=== PATIENT | female | born 1940 | race Caucasian/White ===

== ENCOUNTER 2018-03-11 15:12 | Observation (INO) ==
[2018-03-11] MEDS ORDERED: Ketorolac 30 MG/ML VIAL IVP PRN (17:52)
--- NOTE | 2018-03-11 18:04 | Internal Med History&Physical ---
Date of Encounter: 03/11/18 Time of Encounter: 18:00 Internal Medicine - H&P: HPI Chief complaint: Left groin pain and gross hematuria History of present illness: Patient is a 77-year-old female with past medical history significant for paroxysmal atrial fibrillation, CVA, hypertension, hyperlipidemia and rheumatoid arthritis who presented to [facility] on 03/11/18 due to left groin pain. Patient reports that proximal 10 a.m. of experiencing left sided pain that radiated from her hip down to her groin. She describes the pain as sharp and constant with a severity of 12 out of 10 with movement making discomfort worse and nothing giving any relief. Patient also reported of a 2 day history of gross hematuria. Patient had a friend bring her to [facility] for further evaluation. At [facility] CT of the abdomen/pelvis without contrast showed mild left hydronephrosis with slight inflammatory changes in the left pelvis; sigmoid diverticulosis was also noted without any evidence of diverticulitis. Patient was without leukocytosis and hemoglobin stable at 14.2. Patient was found to have slightly elevated creatinine at 1.07; urinalysis also is showed microhematuria. Patient was also found to have an INR of 4.04. She was subsequently transferred to [facility] medical floor for further management and evaluation. Past Med Surg Social Fam HX - Past Medical History Medical history: atrial fibrillation, CVA, hyperlipidemia, hypertension, RA Additional medical history: Two strokes 2017 Psychiatric history: no psych history - Past Surgical History Surgical History: non-contributory Additional surgical history: Cataract surgery 2018: Diagnosed with macular degeneration - Social History Smoking Status: Never smoker Smokeless Tobacco Status: No Alcohol use: none Drug use: none - Family History Mother Hx Family Cancer: Yes (Multiple myeloma) Sister Hx Family Cancer: Yes (Metestatic breast cancer) Internal Medicine - H&P: Meds Allergy/AdvReac Type Severity Reaction Status Date / Time No Known Allergies Allergy Verified 07/26/16 18:50 All Systems PM: A 10-system review of systems was performed and is negative for pertinent findings except as documented above in the HPI. - Constitutional Vitals: Temp Pulse Resp BP Pulse Ox 98.4 F 60 15 168/62 97 03/11/18 17:51 03/11/18 17:51 03/11/18 17:51 03/11/18 17:51 03/11/18 17:51 Exam: General appearance: Present: A&O X 3, no acute distress - Head Head exam: Present: normocephalic - Eye Eye exam: Present: normal appearance - ENT ENT exam: Present: mucous membranes moist - Respiratory Respiratory exam: Present: CTAB. Absent: accessory muscle use, rales, rhonchi, wheezes - Cardiovascular Cardiovascular exam: Present: RRR, +S1, +S2. Absent: diastolic murmur, gallop, rubs, systolic murmur - GI/Abdominal GI/Abdominal exam: Present: Left-sided abdominal tenderness to palpation Extremities exam: Absent: pedal edema - Neurological Exam Neurological exam: Present: alert, oriented X3, no focal deficits. Absent: altered - Psychiatric Psychiatric exam: -normal mood Skin exam: -normal color - Assessment and plan (1) Gross hematuria Current Visit: Yes Status: Acute Assessment and plan: Patient reports a 48 hour history of gross hematuria with left groin pain suspect secondary to nephrolithiasis CT imaging of abdomen/pelvis as below Urology consulted and appreciate recommendations (2) Hydronephrosis, left Current Visit: Yes Status: Acute Assessment and plan: At [facility] CT of the abdomen/pelvis without contrast showed mild left hydronephrosis with slight inflammatory changes in the left pelvis; sigmoid diverticulosis was also noted without any evidence of diverticulitis. Pain control and IV fluids as below for KALYANI Urology consulted and appreciate recommendations (3) Supratherapeutic INR Current Visit: Yes Status: Acute Assessment and plan: Patient found to have an INR of 4.04 at [facility] ER Will hold Coumadin due to gross hematuria above and monitor INR (4) Paroxysmal atrial fibrillation Current Visit: Yes Status: Acute Assessment and plan: Rate controlled; will hold Coumadin for anticoagulation however due to gross hematuria above and supratherapeutic INR (5) History of CVA (cerebrovascular accident) Current Visit: Yes Status: Acute Assessment and plan: She reports of having 2 CVAs in the past (6) HTN (hypertension), benign Current Visit: Yes Status: Acute Assessment and plan: Continue home medications (7) HLD (hyperlipidemia) Current Visit: Yes Status: Acute Assessment and plan: Continue home medications Qualifiers: Hyperlipidemia type: unspecified Qualified Code(s): E78.5 - Hyperlipidemia, unspecified (8) DVT prophylaxis Current Visit: Yes Status: Acute Assessment and plan: Holding Coumadin due to supratherapeutic INR as above - Time Spent With Patient Total time spent is greater than 50% in coordination of care (as documented) at patient's floor/unit and/or counseling patient:
[2018-03-11] MEDS ORDERED: Naloxone 0.4 MG/ML INJ IVP PRN (18:26)
[2018-03-11] MEDS: 0.9 % Sodium Chloride 1,000 ML IVC SCH (20:33)
[2018-03-12 05:18] LABS: Eosinophils % 1.2 %; Immature Granulocytes % 0.3 % (0-4); Mean Corpuscular HGB Conc 32.7 g/dL (31.6-35.5); Mean Corpuscular Hemoglobin 30.8 pg (28.0-33.3)
[2018-03-12 05:20] LABS: Basophils % 0.3 %; Eosinophils # 0.1 K/mcL (0.0-0.6); Hematocrit 39.1 % (35.3-44.9); Hemoglobin 12.8 g/dL (11.5-15.4); Immature Platelets 7.9 % (1.1-6.1); Mean Corpuscular Volume 94.2 fL (83.0-100.0); Mean Platelet Volume 12.3 fL (9.4-12.4); Monocytes # 0.8 K/mcL (0.0-1.3); Monocytes % 11.5 %; Neutrophils # 4.6 K/mcL (1.6-8.9); Platelet Count 100 K/mcL (140-400); Red Blood Count 4.15 M/mcL (3.82-4.97); Red Cell Distribution Width 12.5 % (11.5-14.5); Segmented Neutrophils % 70.7 %
[2018-03-12 05:24] LABS: INR 3.2; Prothrombin Time 36.1 Seconds (9.4-12.1)
[2018-03-12 05:29] LABS: BUN/Creatinine Ratio 20 (6-26); Blood Urea Nitrogen 14 mg/dL (8-23); Calcium 8.6 mg/dL (8.6-10.3); Carbon Dioxide 27 mEq/L (23-29); Chloride 105 mEq/L (98-107); Glucose 103 mg/dL (70-105); Osmolality,Calculated 289 (280-300); Potassium 3.8 mEq/L (3.5-5.1); Sodium 139 mEq/L (136-145); eGFR For Non-African Americans > 60 (> 60)
[2018-03-12] MEDS ORDERED: traMADol 50 MG TABLET PO PRN (08:33)
--- NOTE | 2018-03-12 08:36 | Urology - Consult Note ---
Date of Encounter: 03/12/18 Time of Encounter: 08:34 - Assessment and Plan (1) Gross hematuria Current Visit: Yes Status: Acute Assessment and plan: Patient continues to have gross hematuria but denies any difficulty with voiding . Her hematuria is likely coming from her left kidney as per CT scan. We will plan on allowing the patient to continue with IV fluids and by mouth intake today. We will follow-up with the patient tomorrow. If patient fails to have dramatic improvement in her hematuria by tomorrow will need to obtain CT abdomen pelvis hematuria protocol. If patient does have improvement in her hematuria as her INR decreases can delay the CT hematuria protocol until outpatient follow- up. (2) Hydronephrosis, left Current Visit: Yes Status: Acute Assessment and plan: Unsure of etiology of this at this time. Could be related to blood products or even ureteral tumor. We better evaluated with CT hematuria protocol. We will continue to follow along closely. Patient's serum creatinine is normal at this time. No significant pain at this time Urology CN:HPI Consult date: 03/12/18 Reason for consult Urology: Gross Hematuria Requesting physician: Gamaliel Adam History of present illness: Fara is a 77-year-old female who was transferred from an outside facility secondary to presumed hematuria and a CT scan showing some left-sided hydronephrosis. She states that to 3 days ago she started to notice some gross hematuria. She then had a 6 with an episode of severe left-sided lower back/ flank discomfort with some radiation towards her groin. Patient describes this pain is a 10 out of 10 in nature. It has dramatically improved after receiving some pain medication at the outside facility. She currently has no pain on her left side and less she moves suddenly. No nausea or vomiting. Patient denies any smoking history. Patient CT scan was personally reviewed and appears the patient has some blood products in her left kidney especially in the lower pole. No obvious renal mass was located but the CT scan was done without IV contrast. Patient did have some mild to moderate left-sided hydronephrosis without any obvious obstructing stone this is likely secondary to some dilation from passing blood products. Patient is unsure if her hematuria has improved over the past day. Her INR was initially elevated above 5 according to the patient over the past week. It was for at the outside facility and now has decreased to 3.2. Past Med Surg Social Fam HX - Past Medical History Medical history: atrial fibrillation, CVA, hyperlipidemia, hypertension, RA Additional medical history: Two strokes 2017 Psychiatric history: no psych history - Past Surgical History Surgical History: non-contributory Additional surgical history: Cataract surgery 2018: Diagnosed with macular degeneration - Social History Smoking Status: Never smoker Smokeless Tobacco Status: No Alcohol use: none Drug use: none - Family History Mother Hx Family Cancer: Yes (Multiple myeloma) Sister Hx Family Cancer: Yes (Metestatic breast cancer) Medications and Allergies Allergy/AdvReac Type Severity Reaction Status Date / Time No Known Allergies Allergy Verified 07/26/16 18:50 Review of Systems - Constitutional no chills, no fever(s) - EENT Nose, mouth and throat: no dizziness - Cardiovascular no chest pain, no dyspnea - Respiratory no cough, no dyspnea - Gastrointestinal abdominal pain, no nausea, no vomiting - Genitourinary Genitourinary: as per HPI - Musculoskeletal back pain, no muscle weakness, no numbness - Integumentary unusual bruising (Patient states she has some bruising on her left side), no swelling - Neurological no confusion - Psychiatric no anxiety - Hematologic/Lymphatic no lymphadenopathy - Allergic/Immunologic no throat swelling, no wheezing Exam Initial Vital Signs Temp Pulse Resp BP Pulse Ox 98.4 F 60 15 168/62 97 03/11/18 17:51 03/11/18 17:51 03/11/18 17:51 03/11/18 17:51 03/11/18 17:51 General/Neuological: alert and oriented x 3 Eyes: normal pupils, non-icteric Neck: no lymphadenopathy noted, supple to touch Cardiovascular: RRR, no murmurs Respiratory: normal respiratory effort, clear bilaterally ABD: soft, nontender, no masses palpated, good bowel sounds, patient does have some bruising just above her left iliac crest. Patient denies any falling episodes Back: no pain on percussion bilaterally Skin: no rashes noted, couple of random bruising areas on abdomen Musculoskeletal: normal gait, FROMx4 Urology Results - Labs 03/12/18 04:39 03/12/18 04:39 Abnormal lab results Plt Count 100 K/mcL (140-400) L 03/12/18 04:39 Immature Plt Fraction 7.9 % (1.1-6.1) H 03/12/18 04:39 PT 36.1 Seconds (9.4-12.1) H 03/12/18 04:39 Diabetes panel 03/12/18 Range/Units 04:39 Sodium 139 (136-145) mEq/L Potassium 3.8 (3.5-5.1) mEq/L Chloride 105 (98-107) mEq/L Carbon Dioxide 27 (23-29) mEq/L BUN 14 (8-23) mg/dL Creatinine 0.69 (0.60-1.20) mg/dL Glucose 103 (70-105) mg/dL Calcium 8.6 (8.6-10.3) mg/dL Calcium panel 03/12/18 Range/Units 04:39 Calcium 8.6 (8.6-10.3) mg/dL Pituitary panel 03/12/18 Range/Units 04:39 Sodium 139 (136-145) mEq/L Potassium 3.8 (3.5-5.1) mEq/L Chloride 105 (98-107) mEq/L Carbon Dioxide 27 (23-29) mEq/L BUN 14 (8-23) mg/dL Creatinine 0.69 (0.60-1.20) mg/dL Glucose 103 (70-105) mg/dL Calcium 8.6 (8.6-10.3) mg/dL Adrenal panel 03/12/18 Range/Units 04:39 Sodium 139 (136-145) mEq/L Potassium 3.8 (3.5-5.1) mEq/L Chloride 105 (98-107) mEq/L Carbon Dioxide 27 (23-29) mEq/L BUN 14 (8-23) mg/dL Creatinine 0.69 (0.60-1.20) mg/dL Glucose 103 (70-105) mg/dL Calcium 8.6 (8.6-10.3) mg/dL All other labs normal. - Imaging CT scan - abdomen: image reviewed CT scan - pelvis: image reviewed ( image reviewed as per history of present illness)
--- NOTE | 2018-03-12 09:22 | Internal Med Progress Note ---
Hospitalist Progress Note - Encounter Date of Encounter: 03/12/18 Time of Encounter: 11:00 - Subjective Interval History: Patient with no improvement in gross hematuria this morning Patient continues to be hemodynamically stable without anemia evident on labs. Continue to monitor for another 24-48 hours - Exam Vitals: Temp Pulse Resp BP Pulse Ox 98.7 F 62 14 160/74 97 03/12/18 06:57 03/12/18 06:57 03/12/18 06:57 03/12/18 06:57 03/12/18 06:57 Exam: General appearance: Present: A&O X 3, no acute distress - Head Head exam: Present: normocephalic - Eye Eye exam: Present: normal appearance - ENT ENT exam: Present: mucous membranes moist - Respiratory Respiratory exam: Present: CTAB. Absent: accessory muscle use, rales, rhonchi, wheezes - Cardiovascular Cardiovascular exam: Present: RRR, +S1, +S2. Absent: diastolic murmur, gallop, rubs, systolic murmur - GI/Abdominal GI/Abdominal exam: Present: Left-sided abdominal tenderness to palpation Extremities exam: Absent: pedal edema - Neurological Exam Neurological exam: Present: alert, oriented X3, no focal deficits. Absent: altered - Psychiatric Psychiatric exam: -normal mood Skin exam: -normal color - Assessment and Plan (1) Gross hematuria Current Visit: Yes Status: Acute Assessment and Plan: Patient reports a 48 hour history of gross hematuria with left groin pain prior to admission on 03/11/18 Patient with no improvement in gross hematuria this morning Patient continues to be hemodynamically stable without anemia evident on labs. CT imaging of abdomen/pelvis as below Urology consulted with recommendations to monitor for 24 hours Will reevaluate in the a.m. for consideration of CT abdomen/pelvis hematuria protocol if no improvement in symptoms (2) Hydronephrosis, left Current Visit: Yes Status: Acute Assessment and Plan: At [facility] CT of the abdomen/pelvis without contrast showed mild left hydronephrosis with slight inflammatory changes in the left pelvis; sigmoid diverticulosis was also noted without any evidence of diverticulitis. Unclear etiology per urology; continuing generous IV fluids Recommendations for CT hematuria protocol for better evaluation either as inpatient or outpatient depending on above (3) Supratherapeutic INR Current Visit: Yes Status: Acute Assessment and Plan: Patient found to have an INR of 4.04 at [facility] ER on 03/11/18 Her INR has improved this morning to 3.2 Will continue holding Coumadin due to gross hematuria above and monitor INR (4) Paroxysmal atrial fibrillation Current Visit: Yes Status: Acute Assessment and Plan: Rate controlled; will hold Coumadin for anticoagulation however due to gross hematuria above and supratherapeutic INR (5) History of CVA (cerebrovascular accident) Current Visit: Yes Status: Acute Assessment and Plan: She reports of having 2 CVAs in the past (6) HTN (hypertension), benign Current Visit: Yes Status: Acute Assessment and Plan: Continue home medications (7) HLD (hyperlipidemia) Current Visit: Yes Status: Acute Assessment and Plan: Continue home medications (8) KALYANI (acute kidney injury) Current Visit: Yes Status: Resolved Assessment and Plan: Resolved; creatinine of 1.07 on admission and this morning her 0.69 with generous IV fluids IV fluids was decreased this morning Continue to monitor DVT Prophylaxis: Holding Coumadin due to supratherapeutic INR as above - Time Spent with Patient Total time spent is greater than 50% in coordination of care (as documented) at patient's floor/unit and/or counseling patient: Internal Medicine: Result - Labs CBC & Chem 7: 03/12/18 04:39 03/12/18 04:39 Labs: Short CBC 03/12/18 Range/Units 04:39 WBC 6.5 (4.3-11.1) K/mcL Hgb 12.8 (11.5-15.4) g/dL Hct 39.1 (35.3-44.9) % Plt Count 100 L (140-400) K/mcL Neutrophils # 4.6 (1.6-8.9) K/mcL BMP 03/12/18 04:39 Sodium 139 Potassium 3.8 Chloride 105 Carbon Dioxide 27 BUN 14 Creatinine 0.69 Glucose 103 Calcium 8.6 - ABG Interpretation ABG results: PT/INR, D-dimer PT 36.1 Seconds (9.4-12.1) H 03/12/18 04:39 - VTE Reasons for not Prescribing Prophylaxis: Medical contraindication (7) HLD (hyperlipidemia) Qualifiers: Hyperlipidemia type: unspecified Qualified Code(s): E78.5 - Hyperlipidemia, unspecified
[2018-03-12] MEDS: 0.9 % Sodium Chloride 1,000 ML IVC SCH (09:34)
[2018-03-12] MEDS ORDERED: Acetaminophen 325 MG TABLET PO ONE (19:33)
[2018-03-12] MEDS ORDERED: Ondansetron 4 MG/2 ML VIAL IVP PRN (19:35)
--- NOTE | 2018-03-12 23:04 | Event Note ---
Date of Encounter: 03/12/18 Time of Encounter: 19:03 Alerted by patient's nurse GENOVEVA Lowe the patient's heart rate had increased over the past hour and was sustaining at 148 to 155 bpm. Vital signs at the time: Temperature 100.2, SPO2 91% on room air, SPO2 99% on 2 L, BP 149/84. Ultram administered for pain and fever. Patient given her home dose of metoprolol early at approximately 07:45. Tylenol ordered for fever. Zofran for nausea and vomiting. Cardiac telemetry ordered. Heart rate after metoprolol 124 w/BP of 142/94, RR 16, temp 98.8, and SpO2 96%. Nurse instructed to continue monitoring pt very closely and notify me immediately of any adverse changes.
[2018-03-13] MEDS: 0.9 % Sodium Chloride 1,000 ML IVC SCH
--- NOTE | 2018-03-13 07:18 | Urology Progress Note ---
Date of Encounter: 03/13/18 Time of Encounter: 07:16 - Assessment and Plan (1) Gross hematuria Current Visit: Yes Status: Acute Assessment and plan: Appears resolved at this time I will arrange for outpatient follow-up. Zeke collier will need close monitoring and better education regarding her INR. (2) Hydronephrosis, left Current Visit: Yes Status: Acute Assessment and plan: We will order outpatient CT abdomen and pelvis hematuria protocol. Progress Note Narrative: Patient seen this morning. Patient states that her urine cleared yesterday afternoon. She no longer has gross hematuria. Patient did have episode of elevated heart rate into the 150s last night. She is now on telemetry. Denies any significant left-sided flank pain at this time Objective Initial Vital Signs Temp Pulse Resp BP Pulse Ox 98.4 F 60 15 168/62 97 03/11/18 17:51 03/11/18 17:51 03/11/18 17:51 03/11/18 17:51 03/11/18 17:51 - General physical appearance Present: well developed, well nourished - Abdomen Present: soft. Absent: tender - Integumentary Present: no rash, no abnormal pigmentation - Labs 03/12/18 04:39 03/12/18 04:39 - VTE Reasons for not Prescribing Prophylaxis: Medical contraindication
[2018-03-13 08:24] LABS: Basophils % 0.4 %; Eosinophils # 0.1 K/mcL (0.0-0.6); Eosinophils % 1.6 %; Hematocrit 41.8 % (35.3-44.9); Hemoglobin 13.6 g/dL (11.5-15.4); Immature Granulocytes % 0.4 % (0-4); Lymphocytes # 0.9 K/mcL (0.6-4.6); Lymphocytes % 16.6 %; Mean Corpuscular HGB Conc 32.5 g/dL (31.6-35.5); Mean Corpuscular Volume 95.2 fL (83.0-100.0); Mean Platelet Volume 12.5 fL (9.4-12.4); Monocytes # 0.6 K/mcL (0.0-1.3); Monocytes % 10.7 %; Neutrophils # 3.9 K/mcL (1.6-8.9); Platelet Count 101 K/mcL (140-400); Red Blood Count 4.39 M/mcL (3.82-4.97); Red Cell Distribution Width 12.1 % (11.5-14.5); Segmented Neutrophils % 70.3 %
[2018-03-13 08:44] LABS: BUN/Creatinine Ratio 17 (6-26); Blood Urea Nitrogen 11 mg/dL (8-23); Calcium 8.4 mg/dL (8.6-10.3); Carbon Dioxide 28 mEq/L (23-29); Chloride 107 mEq/L (98-107); Glucose 130 mg/dL (70-105); Osmolality,Calculated 291 (280-300); Sodium 140 mEq/L (136-145); eGFR For Non-African Americans > 60 (> 60)
[2018-03-13] MEDS: Aspirin Enteric Coated 81 MG Tablet PO SCH (09:14)
[2018-03-13] MEDS: Folic Acid 1 MG TABLET PO SCH (09:14)
[2018-03-13 12:53] LABS: INR 1.7; Prothrombin Time 19.6 Seconds (9.4-12.1)
[2018-03-13 15:02] LABS: Bilirubin,Urine Negative (Negative); Blood,Urine Large (Negative); Clarity,Urine Clear (Clear); Color,Urine Yellow (Yellow); Glucose,Urine (UA) Normal (Normal); Ketones,Urine Negative (Negative); Leukocyte Esterase,Urine Moderate (Negative); Nitrite,Urine Negative (Negative); Protein,Urine Negative (Neg-Trace); Specific Gravity,Urine 1.009 (1.010-1.025); Urobilinogen,Urine Normal (Normal)
[2018-03-13 15:05] LABS: Bacteria,Urine None Seen per hpf (None-Few); Hyaline Casts,Urine None Seen per lpf (None-Few); RBC,Urine 15-30 per hpf (0-3); Squamous Epithelial Cell,Urine Moderate per lpf (None-Few)
[2018-03-13] MEDS: Piperacillin/Tazobactam 3.375 GM in 0.9 % Sodium Chloride Mini Bag 100 ML IVPB SCH (16:16)
--- NOTE | 2018-03-13 17:47 | Internal Med Progress Note ---
Hospitalist Progress Note - Encounter Date of Encounter: 03/13/18 Time of Encounter: 17:47 - Subjective Interval History: Patient's gross hematuria has resolved however developed tachycardia overnight with fever Cultures ordered today in addition to urinalysis She was started on IV antibiotic - Exam Vitals: Temp Pulse Resp BP Pulse Ox 98.5 F 74 16 122/70 93 03/13/18 14:34 03/13/18 14:34 03/13/18 14:34 03/13/18 14:34 03/13/18 14:34 Exam: Gen.: Nonacute distress, alert and oriented 3 ENT: Mucosal membranes moist Respiratory: Lungs are clear to auscultation bilaterally without any wheezing rhonchi or rales Cardiovascular: Normal S1 and S2 regular rate rhythm no murmurs rubs or gallops Abdomen: Soft, nontender and nondistended with positive bowel sounds Extremities: No lower extremity edema Skin: Normal color - Assessment and Plan (1) Fever Current Visit: Yes Status: Acute Assessment and Plan: Patient with a MAXIMUM TEMPERATURE of 100.2 overnight in addition to tachycardia Cultures obtained and patient started on IV Zosyn (2) Gross hematuria Current Visit: Yes Status: Acute Assessment and Plan: Resolved Urology consulted with recommendations for consideration of CT abdomen/pelvis hematuria protocol as an outpatient (3) Hydronephrosis, left Current Visit: Yes Status: Acute Assessment and Plan: At [facility] ER CT of the abdomen/pelvis without contrast showed mild left hydronephrosis with slight inflammatory changes in the left pelvis; sigmoid diverticulosis was also noted without any evidence of diverticulitis. Unclear etiology per urology; continuing generous IV fluids Recommendations for CT hematuria protocol for better evaluation either as inpatient or outpatient depending on above (4) Supratherapeutic INR Current Visit: Yes Status: Acute Assessment and Plan: Patient found to have an INR of 4.04 at [facility] on 03/11/18 Patient's INR now 1.7 and gross hematuria has resolved Resume Coumadin on 03/14/18 (5) Paroxysmal atrial fibrillation Current Visit: Yes Status: Acute Assessment and Plan: Rate controlled; will resume Coumadin on 03/14/18 as above (6) History of CVA (cerebrovascular accident) Current Visit: Yes Status: Acute Assessment and Plan: She reports of having 2 CVAs in the past (7) HTN (hypertension), benign Current Visit: Yes Status: Acute Assessment and Plan: Continue home medications (8) HLD (hyperlipidemia) Current Visit: Yes Status: Acute Assessment and Plan: Continue home medications (9) KALYANI (acute kidney injury) Current Visit: Yes Status: Resolved Assessment and Plan: Resolved; creatinine of 1.07 on admission and this morning her 0.66 with generous IV fluids IV fluids was decreased this morning Continue to monitor DVT Prophylaxis: Resuming Coumadin on 03/14/18 as above - Time Spent with Patient Total time spent is greater than 50% in coordination of care (as documented) at patient's floor/unit and/or counseling patient: Internal Medicine: Result - Labs CBC & Chem 7: 03/13/18 07:49 03/13/18 07:49 Labs: Short CBC 03/13/18 Range/Units 07:49 WBC 5.6 (4.3-11.1) K/mcL Hgb 13.6 (11.5-15.4) g/dL Hct 41.8 (35.3-44.9) % Plt Count 101 L (140-400) K/mcL Neutrophils # 3.9 (1.6-8.9) K/mcL BMP 03/13/18 07:49 Sodium 140 Potassium 4.0 Chloride 107 Carbon Dioxide 28 BUN 11 Creatinine 0.66 Glucose 130 H Calcium 8.4 L Urine 03/13/18 Range/Units 14:20 Urine Color Yellow (Yellow) Urine Clarity Clear (Clear) Urine pH 6.0 (5.0-8.0) pH Units Ur Specific [place] 1.009 L (1.010-1.025) Urine Protein Negative (Neg-Trace) mg/dL Urine Glucose (UA) Normal (Normal) mg/dL - ABG Interpretation ABG results: PT/INR, D-dimer PT 19.6 Seconds (9.4-12.1) H 03/13/18 12:29 - VTE Reasons for not Prescribing Prophylaxis: Medical contraindication (8) HLD (hyperlipidemia) Qualifiers: Hyperlipidemia type: unspecified Qualified Code(s): E78.5 - Hyperlipidemia, unspecified
[2018-03-14] MEDS: Piperacillin/Tazobactam 3.375 GM in 0.9 % Sodium Chloride Mini Bag 100 ML IVPB SCH ×2 (00:11→08:01)
[2018-03-14] MEDS: Folic Acid 1 MG TABLET PO SCH (08:02)
[2018-03-14] MEDS: Aspirin Enteric Coated 81 MG Tablet PO SCH (08:02)
[2018-03-14 08:49] VITALS: BP 184/79
[2018-03-14 11:47] LABS: Basophils % 0.2 %; Eosinophils # 0.1 K/mcL (0.0-0.6); Eosinophils % 2.6 %; Immature Granulocytes % 0.4 % (0-4); Lymphocytes % 18.8 %; Mean Corpuscular HGB Conc 32.2 g/dL (31.6-35.5); Mean Corpuscular Hemoglobin 30.6 pg (28.0-33.3); Mean Corpuscular Volume 95.1 fL (83.0-100.0); Mean Platelet Volume 12.6 fL (9.4-12.4); Monocytes # 0.5 K/mcL (0.0-1.3); Monocytes % 9.1 %; Neutrophils # 3.5 K/mcL (1.6-8.9); Platelet Count 103 K/mcL (140-400); Red Blood Count 3.89 M/mcL (3.82-4.97); Red Cell Distribution Width 12.2 % (11.5-14.5); Segmented Neutrophils % 68.9 %
[2018-03-14 11:56] LABS: INR 1.4; Prothrombin Time 15.9 Seconds (9.4-12.1)
[2018-03-14 11:57] LABS: Hemoglobin 11.9 g/dL (11.5-15.4)
[2018-03-14 12:10] LABS: BUN/Creatinine Ratio 19 (6-26); Blood Urea Nitrogen 14 mg/dL (8-23); Calcium 8.3 mg/dL (8.6-10.3); Carbon Dioxide 26 mEq/L (23-29); Chloride 105 mEq/L (98-107); Glucose 162 mg/dL (70-105); Osmolality,Calculated 290 (280-300); Potassium 3.8 mEq/L (3.5-5.1); Sodium 138 mEq/L (136-145); eGFR For Non-African Americans > 60 (> 60)
--- NOTE | 2018-03-14 14:48 | Discharge Summary ---
- NOTES TO OUTPATIENT PROVIDER Notes to Outpatient Provider: Follow-up as an outpatient for CT abdomen/pelvis hematuria protocol. Orders not resulted at time of discharge: Pending orders 03/13/18 12:28 Culture,Blood [BC] Routine 03/15/18 04:00 Basic Metabolic Panel AM 0400 Complete Blood Count [HEME] AM 0400 03/16/18 04:00 Complete Blood Count [HEME] AM 0400 Date of Encounter: 03/14/18 Time of Encounter: 11:00 - Discharge Diagnosis (1) Fever Priority: Secondary Status: Acute Qualifiers: Encounter type: initial encounter Qualified Code(s): T88.3XXA - Malignant hyperthermia due to anesthesia, initial encounter (2) Gross hematuria Priority: Primary Status: Acute (3) Hydronephrosis, left Priority: Primary Status: Acute (4) Supratherapeutic INR Priority: Primary Status: Acute (5) Paroxysmal atrial fibrillation Priority: Secondary Status: Acute (6) History of CVA (cerebrovascular accident) Priority: Secondary Status: Acute (7) HTN (hypertension), benign Priority: Secondary Status: Acute (8) HLD (hyperlipidemia) Priority: Secondary Status: Acute Qualifiers: Hyperlipidemia type: unspecified Qualified Code(s): E78.5 - Hyperlipidemia, unspecified (9) KALYANI (acute kidney injury) Priority: Secondary Status: Resolved Hospital course: Patient is a 77-year-old female with past medical history significant for paroxysmal atrial fibrillation, CVA, hypertension, hyperlipidemia and rheumatoid arthritis who presented to [facility] on 03/11/18 due to left groin pain. Patient reports that proximal 10 a.m. of experiencing left sided pain that radiated from her hip down to her groin. She describes the pain as sharp and constant with a severity of 12 out of 10 with movement making discomfort worse and nothing giving any relief. Patient also reported of a 2 day history of gross hematuria. Patient had a friend bring her to [facility] for further evaluation. At [facility] CT of the abdomen/pelvis without contrast showed mild left hydronephrosis with slight inflammatory changes in the left pelvis; sigmoid diverticulosis was also noted without any evidence of diverticulitis. Patient was without leukocytosis and hemoglobin stable at 14.2. Patient was found to have slightly elevated creatinine at 1.07; urinalysis also is showed microhematuria. Patient was also found to have an INR of 4.04. She was subsequently transferred to [facility] medical floor for further management and evaluation. During patients hospital stay her gross hematuria resolved and urology with r ecommendations to follow-up as an outpatient for CT abdomen/pelvis hematuria protocol. Patient also started on antibiotic for UTI and will finish a day course of Cipro - Time Spent with Patient Total time spent providing and/or coordinating discharge services: Less than 30 minutes - Discharge Medications Prescriptions: Ciprofloxacin HCl [Cipro] 500 mg PO BID 4 Days #8 tablet Warfarin [Coumadin] 2.5 mg PO DAILY #30 tablet Home Medications: Aspirin [Lo-Dose Aspirin EC] 81 mg PO DAILY 03/12/18 [History] Atorvastatin Calcium [Lipitor] 20 mg PO HS 03/12/18 [History] Folic Acid 0.4 mg PO DAILY 03/12/18 [History] Levothyroxine Sodium 50 mcg PO DAILY 03/12/18 [History] Lisinopril [Zestril] 10 mg PO DAILY 03/12/18 [History] Metoprolol [Lopressor] 12.5 mg PO BID 03/12/18 [History] Multivit-Min/FA/Lycopen/Lutein [Adults 50 Plus Multivitamin] 1 tab PO DAILY 03/12/18 [History] Omeprazole [PriLOSEC] 40 mg PO Q48H 03/12/18 [History] Ciprofloxacin HCl [Cipro] 500 mg PO BID 4 Days #8 tablet 03/14/18 [Rx] Warfarin [Coumadin] 2.5 mg PO DAILY #30 tablet 03/14/18 [Rx] Allergies/Adverse Reactions: Allergy/AdvReac Type Severity Reaction Status Date / Time No Known Allergies Allergy Verified 03/12/18 17:35 Date of admission: 03/11/18 17:11 Consults: 03/11/18 17:53 Consult to Urology [CONS] Routine Consulting Provider: Urology Yesenia Reason for Consult: Possibly hydronephrosis, Blood in urine Call Completed: Yes - Constitutional Vitals: Temp Pulse Resp BP Pulse Ox 98 F 57 16 184/79 95 03/14/18 08:46 03/14/18 08:46 03/14/18 08:46 03/14/18 08:46 03/14/18 08:46 Exam: Gen.: Nonacute distress, alert and oriented 3 Skin: Normal color - Patient Status Disposition: Home, Self-Care - Discharge Instructions Instructions: Ciprofloxacin (By mouth), Warfarin (By mouth), Vitamin K in Foods (DC), Elevated INR (DC), Venous Thromboembolism (DC), Venous Thromboembolism (GEN) Follow Up With: Jyoti Miller CNP [Advanced Practice Nurse] - 03/18/18 2:00 pm - VTE Reasons for not Prescribing Prophylaxis: Medical contraindication
[2018-03-14] MEDS ORDERED: *HR* Warfarin 2.5 MG TABLET PO SCH (18:00)
== END 2018-03-14 15:58 | disposition home or self-care (01) ==
LOC: 3ANU → SUATTDRO 17:11
PROVIDERS: ADMIT Student in an Organized Health Care Education/Training Program; ATTEND Hospitalist

== ENCOUNTER 2019-12-10 00:44 | Observation (INO) ==
[2019-12-10] MEDS ORDERED: Naloxone 0.4 MG/ML INJ IVP PRN (02:36)
[2019-12-10 03:37] LABS: Basophils % 0.2 %; Eosinophils # 0.1 K/mcL (0.0-0.6); Hematocrit 43.1 % (35.3-44.9); Hemoglobin 14.1 g/dL (11.5-15.4); Immature Granulocytes % 0.3 % (0-4); Lymphocytes # 1.2 K/mcL (0.6-4.6); Lymphocytes % 20.8 %; Mean Corpuscular HGB Conc 32.7 g/dL (31.6-35.5); Mean Corpuscular Hemoglobin 31.7 pg (28.0-33.3); Mean Corpuscular Volume 96.9 fL (83.0-100.0); Monocytes # 0.5 K/mcL (0.0-1.3); Platelet Count 134 K/mcL (140-400); Red Blood Count 4.45 M/mcL (3.82-4.97); Red Cell Distribution Width 13.1 % (11.5-14.5); Segmented Neutrophils % 69.7 %; White Blood Count 5.8 K/mcL (4.3-11.1)
[2019-12-10 03:42] LABS: INR 2.6; Prothrombin Time 29.1 Seconds (9.4-12.1)
[2019-12-10 04:07] LABS: Alanine Aminotransferase 21 Units/L (7-52); Albumin 3.7 g/dL (3.5-5.7); Albumin/Globulin Ratio 1.5 (1.1-2.2); Alkaline Phosphatase 64 Units/L (34-104); Aspartate Amino Transferase 23 Units/L (13-39); BUN/Creatinine Ratio 17 (6-26); Bilirubin,Total 0.7 mg/dL (0.3-1.0); Blood Urea Nitrogen 12 mg/dL (8-23); Calcium 8.6 mg/dL (8.6-10.3); Carbon Dioxide 23 mEq/L (23-29); Chloride 107 mEq/L (98-107); Globulin 2.5 g/dL (2.4-3.5); Glucose 129 mg/dL (70-105); Magnesium 1.9 mg/dL (1.6-2.6); Osmolality,Calculated 289 (280-300); Potassium 3.8 mEq/L (3.5-5.1); Sodium 139 mEq/L (136-145); Total Protein 6.2 g/dL (6.4-8.9); Troponin I < 0.03 ng/mL (< 0.04); eGFR For African Americans > 60 (> 60); eGFR For Non-African Americans > 60 (> 60)
[2019-12-10] MEDS ORDERED: Perflutren Lipid Microsphere 1.3 ML in 0.9 % Sodium Chloride 8.7 ML IVP PRN (06:46)
[2019-12-10] MEDS: Aspirin Enteric Coated 81 MG Tablet PO SCH (07:32)
[2019-12-10] MEDS: lisinopriL 10 MG TABLET PO SCH ×2 (07:33→16:52)
[2019-12-10 07:46] LABS: Thyroid Stimulating Hormone 5.644 mcIU/mL (0.340-5.600)
[2019-12-10] MEDS: Folic Acid 1 MG TABLET PO SCH (09:17)
[2019-12-10] MEDS: Multivit/Ca/Min/Fe/FA 1 TAB TABLET PO SCH (09:17)
[2019-12-10] MEDS ORDERED: Warfarin perPT PO PRN (18:00)
[2019-12-10] MEDS ORDERED: *HR* Warfarin 2.5 MG TABLET PO ONE (18:00)
[2019-12-11 01:14] LABS: INR 2.7; Prothrombin Time 30.5 Seconds (9.4-12.1)
[2019-12-11 06:25] VITALS: BP 139/85
[2019-12-11] MEDS: Folic Acid 1 MG TABLET PO SCH (08:11)
[2019-12-11] MEDS: lisinopriL 10 MG TABLET PO SCH (08:11)
[2019-12-11] MEDS: Multivit/Ca/Min/Fe/FA 1 TAB TABLET PO SCH (08:11)
[2019-12-11] MEDS: Aspirin Enteric Coated 81 MG Tablet PO SCH (08:11)
[2019-12-11] MEDS ORDERED: *HR* Warfarin 2.5 MG TABLET PO ONE (18:00)
== END 2019-12-11 12:42 | disposition home or self-care (01) ==
LOC: 3BNU
PROVIDERS: ADMIT Internal Medicine; ATTEND Internal Medicine